=== PATIENT | male | born 1950 | race Caucasian/White ===

== ENCOUNTER 2016-07-30 14:45 | Emergency (ER) | payer OTHER ==
--- NOTE | ~2016-07-30 | EKG ---
PATIENT: LISA BRIGHT UNIT #: [id number] Ventricular Rate: 57 BPM Atrial Rate: 57 BPM P-R Interval: 152 ms QRS Duration: 84 ms Q-T Interval: 408 ms QTC Calculation(Bezet): 397 ms P [place]: 75 degrees Calculated R [place]: 17 degrees Calculated T [place]: 40 degrees Diagnosis Line: Sinus bradycardia Diagnosis Line: Nonspecific ST abnormality Diagnosis Line: Abnormal ECG Diagnosis Line: When compared with ECG of 30-JUL-2016 15:02, Diagnosis Line: (unconfirmed) Diagnosis Line: No significant change was found Diagnosis Line: Confirmed by DARLINE PASCAL MD ([id number]) on Diagnosis Line: 07/30/2016 10:23:27 PM INTERPRETING MD: ZANE
--- NOTE | ~2016-07-30 | CR72 ---
[facility] A Service of [facility] & [facility] RADIOLOGY TEXT RESULTS PATIENT: LISA BRIGHT LOCATION: [facility] : [birth year] UNIT #: [id number] AGE: [address]: Manuela Cope MD SEX: M ORDER DR: [id number] [facility] [address] [place] [address]. [place], [place] [address] [id number] MR#: [id number] Acc #: [id number] NAME: LISA BRIGHT : 1950 SEX: M STUDY DATE/TIME: 07/30/2016 15:03 UNIT: [facility] ROOM: STUDY DESCRIPTION: CR Chest Single View Portable Attending Physician: Manuela Cope M.D. Ordering Physician: Topher Sims M.D. Primary Care Physician: Abby Puckett M.D. MEDICAL IMAGING REPORT This report is preliminary unless electronic signature is present EXAM Portable chest INDICATIONS Chest pain and shortness of breath today COMPARISON 05/20/2015 FINDINGS Low-volume inspiration with bibasilar atelectasis or consolidation. Heart size stable. The visualized osseous structures are unremarkable. IMPRESSION Low-volume inspiration with bibasilar atelectasis or consolidation. Dictated by... Miguel Harrison M.D. THIS IS AN ELECTRONICALLY VERIFIED REPORT Miguel Harrison M.D. at 07/31/2016 10:06 AM ARS/to TD: 07/30/2016 19:52 JOB #: [id number] MEDICAL IMAGING REPORT Page 1 of 1 COPY
--- NOTE | ~2016-07-30 | EKG ---
PATIENT: LISA BRIGHT UNIT #: [id number] Ventricular Rate: 81 BPM Atrial Rate: 81 BPM P-R Interval: 154 ms QRS Duration: 86 ms Q-T Interval: 364 ms QTC Calculation(Bezet): 422 ms P [place]: 52 degrees Calculated R [place]: 17 degrees Calculated T [place]: 30 degrees Diagnosis Line: Normal sinus rhythm Diagnosis Line: Normal ECG Diagnosis Line: When compared with ECG of 20-MAY-2015 12:37, Diagnosis Line: Vent. rate has increased BY 33 BPM Diagnosis Line: QT has lengthened Diagnosis Line: Confirmed by DARLINE PASCAL MD ([id number]) on Diagnosis Line: 07/30/2016 10:20:37 PM INTERPRETING MD: ZANE
[~2016-07-30 14:45] MED LIST: ASPIRIN81 M2 PO; ECOTRIN81 M1 PO; FLORINEF0.1 MG PO; HYDROCHLOROTHIA25 MG PO; MULTI VITAMIN1 EACH PO; MULTI-VITAMIN1 EAC1 PO; OMEPRAZOLE20 M1 PO; OMEPRAZOLE20 M2 PO; TENORMIN25 MG PO
[2016-07-30 15:41] LABS: POC - CKMB 1.1 ng/mL (0.0-7.9); POC - TROPONIN <0.05 ng/mL (<=0.05)
[2016-07-30 15:51] LABS: BASOPHIL# 0.1 X10e3 (0-0.3); BASOPHIL% 0.4 % (0-2.5); EOSINOPHIL% 0.4 % (0.0-7.0); HEMATOCRIT 44.4 % (38.0-50.0); HEMOGLOBIN 14.3 gm/dL (13.0-16.0); LYMPHOCYTE# 1.3 X10e3 (1.0-3.5); LYMPHOCYTE% 10.4 % (17.0-45.0); MEAN CELL VOLUME 90.4 FL (83-96); MEAN CORPUSCULAR HEMOGLOBIN 29.1 PG (28-34); MEAN CORPUSCULAR HGB CONC 32.2 g/dL (30-36); MEAN PLATELET VOLUME 9.3 FL (6.5-11.5); MONOCYTE# 0.7 X10e3 (0-1.0); MONOCYTE% 5.8 % (3.0-12.0); NEUTROPHIL# 10.2 X10e3 (1.5-7.1); PLATELET COUNT 232 X10e3 (140-420); RED BLOOD COUNT 4.91 X10e (3.90-5.60); RED CELL DISTRIBUTION WIDTH 13.8 % (11.0-15.5); WHITE BLOOD COUNT 12.2 X10e3 (4.0-10.5)
[2016-07-30 15:54] LABS: DIFF IND NO
[2016-07-30 16:17] LABS: ALBUMIN SERUM 4.1 g/dL (3.5-5.0); BILIRUBIN, DIRECT 0.1 mg/dL (0.0-0.2); BILIRUBIN,INDIRECT 0.6 mg/dL (0.0-0.9); BILIRUBIN,TOTAL 0.7 mg/dL (0.2-2.0); BUN/CREATININE RATIO 28.33; CALCIUM SERUM 8.9 mg/dL (8.4-10.2); CREATININE SERUM 0.6 mg/dL (0.6-1.4); POTASSIUM 4.2 mmol/L (3.5-5.1); PROTEIN TOTAL SERUM 6.7 g/dL (6.0-8.3)
[2016-07-30 17:58] LABS: POC - CKMB 1.1 ng/mL (0.0-7.9); POC - TROPONIN <0.05 ng/mL (<=0.05)
[2016-09-18] MEDS ORDERED: ASPIRIN81 M2 PO (12:31)
[2016-09-18] MEDS ORDERED: SAW PALMETTO500 MG PO (12:32)
[2016-09-18] MEDS ORDERED: LIPITOR40 MG PO (12:33)
[2016-09-18] MEDS ORDERED: TENORMIN25 MG PO (12:33)
[2016-09-18] MEDS ORDERED: CYCLOBENZAPRINE5 MG PO (12:34)
[2016-09-18] MEDS ORDERED: LISINOPRIL20 MG PO (12:35)
[2016-09-18] MEDS ORDERED: LISINOPRIL10 MG PO (12:36)
[2016-09-18] MEDS ORDERED: OMEPRAZOLE20 M1 PO (12:36)
[2016-09-18] MEDS ORDERED: MULTIPLE VITAM1 EAC1 PO (12:37)
[2016-09-18] MEDS ORDERED: BENADRYL25 M1 PO (12:42)
[2016-09-19] MEDS ORDERED: BISACODYL EC5 M1 PO (13:50)
[2016-09-19] MEDS ORDERED: CELEXA10 M1 PO (13:50)
[2016-09-19] MEDS ORDERED: MOBIC PO (13:51)
== END 2016-07-30 18:45 | disposition home or self-care (01) ==
LOC: CED 14:45
PROVIDERS: Emergency Medicine; Student in an Organized Health Care Education/Training Program
DX: R07.89 Other chest pain (principal); R06.02 Shortness of breath; I10 Essential (primary) hypertension; J44.9 Chronic obstructive pulmonary disease, unspecified; F41.9 Anxiety disorder, unspecified; F17.200 Nicotine dependence, unspecified, uncomplicated
CPT/HCPCS: 36415; 71010; 80048; 80076; 82553; 83880; 84484; 85025; 93005; 99285

== ENCOUNTER → 2016-09-19 | Day surgery (SDC) | payer OTHER ==
[~2016-09-19] MED LIST changes: +BENADRYL25 M1 PO; +BISACODYL EC5 M1 PO; +CELEXA10 M1 PO; +CYCLOBENZAPRINE5 MG PO; +LIPITOR40 MG PO; +LISINOPRIL10 MG PO; +LISINOPRIL20 MG PO; +MOBIC PO; +MULTIPLE VITAM1 EAC1 PO; +SAW PALMETTO500 MG PO
--- NOTE | ~2016-09-19 | OR ---
Unit #: [id number] #: [id number] Patient: LISA BRIGHT [id number] [address] [address] [id number] MR#: [id number] NAME: LISA BRIGHT ROOM: Date of Procedure: 09/19/2016 Admission Date: 09/19/2016 Surgeon: Carlos Collado M.D. : 1950 Attending Physician: Carlos Collado M.D. Primary Care Physician: Abby Puckett M.D. PROCEDURE OPERATIVE NOTE PROCEDURES PERFORMED 1. Upper GI endoscopy 2. Colonoscopy with biopsies PREOPERATIVE DIAGNOSES 1. Gastroesophageal reflux 2. Colorectal cancer screening POSTOPERATIVE DIAGNOSES For upper endoscopy: 1. Completely normal examination of the third part of duodenum. For colonoscopy: 1. The patient had three polyps, two in the sigmoid colon and one in the ascending colon. All were diminutive and were removed using cold biopsy forceps. 2. Moderate diffuse doyle diverticulosis. 3. Small internal hemorrhoids. 4. Rest of the examination up to cecum was normal. The quality of the prep was excellent. RECOMMENDATIONS 1. The patient will continue on omeprazole once a day. 2. We will follow up the results of biopsies and polyp histology. 3. Require repeat colonoscopy in 5 years. SEDATION USED MAC. DESCRIPTION OF PROCEDURE Following detailed explanation of the potential risks and complications of an upper endoscopy and a colonoscopy, namely perforation, bleeding, and complications related to sedation, the patient was brought to GI lab and laid in the left lateral decubitus position. Lubricated tip of the Olympus video upper endoscope was passed through the bite block into the proximal esophagus under direct vision. The entire esophageal mucosa was examined and appeared normal. Z-line was nicely demarcated, there being no esophagitis or hiatus hernia. The scope was then advanced into the gastric cavity and the latter was insufflated. Mucosa of the fundus, body, and antrum were examined; it appeared unremarkable. Pylorus was intubated with visualization of the normal duodenal bulb and second and third part of the duodenum. Upon withdrawal and retroflexion, incisura, cardia, and greater curve were examined and no additional findings noted. Unit #: [id number] #: [id number] Patient: LISA BRIGHT The scope was then withdrawn from the distal esophagus. The entire esophageal mucosa was examined all the way up to pharynx. No additional findings noted. The examination table was then turned by 180 degrees and the patient positioned for a colonoscopy. A digital rectal examination was performed, which was normal. Lubricated tip of the Olympus video colonoscope was inserted through the anus and advanced under direct vision. The scope was advanced and passed up to sigmoid into descending colon. Multiple medium size diverticula were noted in this area. The scope tip was then navigated all the way up to cecum with visualization of the ileocecal valve and the appendiceal orifice. Preparation was excellent with good visualization and photo documentation was obtained. Successive segments of the colonic mucosa were examined upon withdrawal. The patient was noted to have sessile polyp in proximal ascending colon. The latter was removed using cold biopsy forceps. Two additional polyps noted in the mid sigmoid colon. These were also removed using cold biopsy forceps. No additional polyps noted. The patient had moderate doyle diverticulosis. In addition, small internal hemorrhoids are also noted at the anal verge seen on retroflexion. The scope was then withdrawn. The patient returned to the recovery area. He tolerated the procedure without any postprocedure complications. Dictated by... Ernestina Alvarado/yennifer TD: 09/19/2016 15:45 JOB #: [id number] PROCEDURE OPERATIVE NOTE Page 1 of 1 X Carlos Collado MD PROCEDURE OPERATIVE NOTE
== END | disposition home or self-care (01) ==
LOC: COPS 11:54
DX: Z12.11 Encounter for screening for malignant neoplasm of colon (principal); D12.2 Benign neoplasm of ascending colon; K52.9 Noninfective gastroenteritis and colitis, unspecified; K21.9 Gastro-esophageal reflux disease without esophagitis; K57.30 Diverticulosis of large intestine without perforation or abscess without bleeding; K64.8 Other hemorrhoids; I10 Essential (primary) hypertension; F17.210 Nicotine dependence, cigarettes, uncomplicated; Z95.818 Presence of other cardiac implants and grafts; Z79.82 Long term (current) use of aspirin; Z79.899 Other long term (current) drug therapy
CPT/HCPCS: 88305; J2250